=== PATIENT | female | born 1930 | race Caucasian/White ===

== ENCOUNTER 2016-05-24 15:03 | Inpatient (IN) | payer MEDICARE, BC ==
[~2016-05-24] VITALS: Ht 172.7 cm; Wt 110.4 kg
[~2016-05-24 15:03] MED LIST changes: -HUMALOG 75/2100 U/ML SQ; -ULTRAM 50MG TAB50 MG PO
[2016-05-24 15:46] LABS: C-REACTIVE PROTEIN 0.8 mg/dL (0.0-0.9)
[2016-05-24 15:55] LABS: B-TYPE NATRIURETIC PEPTIDE 280 pg/mL (0-450)
[2016-05-24 15:57] LABS: TROPONIN-I < 0.012 ng/mL (0.000-0.034)
[2016-05-24] MEDS ORDERED: LOTREL 10 MG-401 CAP PO (16:04)
[2016-05-24] MEDS ORDERED: CATAPRES0.2 MG PO (16:05)
[2016-05-24] MEDS ORDERED: HUMALOG 75/2100 U/ML SQ ×2 (16:07)
[2016-05-24] MEDS ORDERED: ULTRAM 50MG TAB50 MG PO (16:10)
[2016-05-24] MEDS ORDERED: APRESOLINE50 MG PO (16:11)
[2016-05-24] MEDS ORDERED: ALEVE 220MG220 MG PO (16:13)
[2016-05-24 16:14] LABS: PH 5 (5-8); SQUAMOUS EPITHELIAL None Seen /hpf; URINE APPEARANCE Clear; URINE BACTERIA None Seen /hpf; URINE BILIRUBIN Negative (NEGATIVE); URINE BLOOD Negative (NEGATIVE); URINE COLOR Amber; URINE GLUCOSE 3+ (NEGATIVE); URINE KETONE Negative (NEGATIVE); URINE RBC 0-2 /hpf; URINE UROBILINOGEN Negative (NEGATIVE); URINE WBC 0-2 /hpf
[2016-05-24 18:42] VITALS: BP 97/54; PULSE 85; TEMP 98.3
[2016-05-24 21:07] VITALS: BP 147/54; PULSE 82; TEMP 98.3
[2016-05-25 00:11] LABS: INFLUENZA B NEGATIVE
[2016-05-25 00:24] VITALS: BP 148/44; PULSE 87; TEMP 98.2
[2016-05-25 05:05] VITALS: BP 157/64; PULSE 83; TEMP 98.8
[2016-05-25 07:31] LABS: BASO # 0.1 (0.0-0.2); BASO % 0.4 % (0.0-2.0); EOS # 0.1 (0.0-0.7); EOS % 1.2 % (0-4.0); GRAN # 8.3 (1.4-6.5); GRAN % 70.6 % (42.2-75.2); HEMOGLOBIN 14.7 g/dl (12.5-16.0); LYMPH # 2.2 (1.2-3.4); LYMPH % 18.8 % (20.0-51.0); MEAN CELL VOLUME 87 fl (80.0-100.0); MEAN CORPUSCULAR HEMOGLOBIN 29 pg (27.0-31.0); MEAN CORPUSCULAR HGB CONC 33 g/dl (33.0-37.0); MONO % 8.7 % (1.7-9.3); RED BLOOD COUNT 5.05 M/mm3 (4.10-5.30); REDCELL DISTRIBUTION WIDTH-CV 13.1 % (11.5-14.5); WHITE BLOOD COUNT 11.8 K/mm3 (4.8-10.8)
[2016-05-25 07:33] LABS: PLATELET COUNT 222 K/mm3 (130-400)
[2016-05-25 07:35] LABS: CALCIUM 9.3 mg/dL (8.4-10.2); CREATININE, serum 1.13 mg/dL (0.52-1.25); POTASSIUM 3.9 mmol/L (3.4-5.0)
[2016-05-25 08:05] LABS: THYROID STIMULATING HORMONE 1.17 uIU/mL (0.465-4.680)
[2016-05-25 09:01] VITALS: BP 139/64; PULSE 64; TEMP 97.6
[2016-05-25 12:02] VITALS: BP 119/48; PULSE 77; TEMP 98.2
[2016-05-25 17:14] VITALS: BP 152/57; PULSE 76; TEMP 98.1
[2016-05-25 20:35] VITALS: BP 158/61; PULSE 92; TEMP 98.5
[2016-05-26 01:18] VITALS: BP 145/61; PULSE 88; TEMP 98.3
[2016-05-26 05:05] VITALS: BP 166/48; PULSE 76; TEMP 97.4
[2016-05-26 07:50] LABS: BASO % 0.5 % (0.0-2.0); EOS # 0.2 (0.0-0.7); EOS % 2.6 % (0-4.0); GRAN # 5.1 (1.4-6.5); GRAN % 59.4 % (42.2-75.2); HEMATOCRIT 40.5 % (37.0-47.0); HEMOGLOBIN 13.3 g/dl (12.5-16.0); LYMPH # 2.4 (1.2-3.4); LYMPH % 28.1 % (20.0-51.0); MEAN CELL VOLUME 89 fl (80.0-100.0); MEAN CORPUSCULAR HEMOGLOBIN 29 pg (27.0-31.0); MEAN CORPUSCULAR HGB CONC 33 g/dl (33.0-37.0); MEAN PLATELET VOLUME 11.5 fl (7.4-10.4); MONO # 0.8 (0.1-0.6); PLATELET COUNT 228 K/mm3 (130-400); RED BLOOD COUNT 4.55 M/mm3 (4.10-5.30); REDCELL DISTRIBUTION WIDTH-CV 13.3 % (11.5-14.5); WHITE BLOOD COUNT 8.5 K/mm3 (4.8-10.8)
[2016-05-26 08:50] VITALS: BP 144/86; PULSE 74; TEMP 97.8
[2016-05-26] MEDS ORDERED: ULTRAM 50MG TAB50 MG PO (11:11)
== END 2016-05-26 12:15 | disposition home or self-care (01) | DRG 552 ==
LOC: COL.ER 15:03 → MEDICAL 17:12
PROVIDERS: Emergency Medicine; Internal Medicine; Physician Assistant
DX: M51.36 Other intervertebral disc degeneration, lumbar region (principal); E87.1 Hypo-osmolality and hyponatremia; N17.9 Acute kidney failure, unspecified; E11.9 Type 2 diabetes mellitus without complications; I10 Essential (primary) hypertension; E83.52 Hypercalcemia; E86.0 Dehydration; E11.65 Type 2 diabetes mellitus with hyperglycemia; J84.10 Pulmonary fibrosis, unspecified
CPT/HCPCS: 99223-AI; 99232-AI; 99239; J0456; J0696; J1644; J1815; J2405; J7030; J7050

== ENCOUNTER → 2016-05-24 | Outpatient (CLI) | payer MEDICARE, BC ==
[~2016-05-24] MED LIST: ALDACTONE50 MG PO; ALEVE 220MG220 MG PO; APRESOLINE 25MG25 MG PO; APRESOLINE50 MG PO; ASPI325T6 PO; ASPIRIN 81M81 MG/TA2 PO; ASPIRIN E.C. 8181 MG PO; CATAPRES 0.1MG0.1 MG PO; CATAPRES0.2 MG PO; CELEXA10 MG PO; CETIRIZINE; CLEOCIN HCL300 MG PO; COMPLETE SENIOR1 TA1 PO; CORDARONE200 MG/TAB PO; FISH OIL500 MG PO; FLOVENT DI50 MCG/Act IH; FUROSEMIDE; HUMALOG 75/2100 U/ML SQ; HUMALOG PEN100 U/ML SQ; HUMALOG100 U/ML SC; JANUVIA50 MG PO; LANTUS SOLOS100 U/ML SQ; LANTUS100 U/ML SQ; LASIX 20MG TABL20 MG PO; LASIX 40MG TABL40 MG PO; LEVAQUIN 5500 MG/TA1 PO; LOPRESSOR 550 MG/TAB PO; LOTENSIN 1010 MG/TAB PO; LOTENSIN40 MG PO; LOTREL 10 MG-401 CAP PO; LOTREL 5 MG-201 CAP PO; LOTREL 5/20 CAP1 CAP PO; MASON NATURAL1200 MG PO; MINIPRESS 5M5 MG/CAP PO; MULTI VITAMINS1 TAB PO; NORVASC 10MG10 MG PO; PLAVIX 75MG TAB75 MG PO; PRAVACHOL 20MG20 MG PO; PRAZOSIN; RT Duoneb Neb Soln IH; SIMVASTATIN5 MG PO; TYLENOL 500MG500 MG PO; ULTRAM 50MG TAB50 MG PO; ZOCOR5 MG PO; ZYRTEC 10MG10 MG PO; ZYRTEC ALLERGY10 MG PO; [UNRECOGNIZED DRUG - REMARK]
[2016-05-24 13:32] LABS: BASO # 0.1 (0.0-0.2); BASO % 0.5 % (0.0-2.0); EOS # 0.2 (0.0-0.7); EOS % 1.6 % (0-4.0); GRAN # 7.7 (1.4-6.5); GRAN % 60.4 % (42.2-75.2); HEMATOCRIT 47.7 % (37.0-47.0); HEMOGLOBIN 16.4 g/dl (12.5-16.0); LYMPH # 3.8 (1.2-3.4); LYMPH % 29.9 % (20.0-51.0); MEAN CELL VOLUME 86 fl (80.0-100.0); MEAN CORPUSCULAR HEMOGLOBIN 30 pg (27.0-31.0); MEAN CORPUSCULAR HGB CONC 34 g/dl (33.0-37.0); MEAN PLATELET VOLUME 11.4 fl (7.4-10.4); MONO # 0.9 (0.1-0.6); MONO % 7.3 % (1.7-9.3); PLATELET COUNT 329 K/mm3 (130-400); RED BLOOD COUNT 5.52 M/mm3 (4.10-5.30); REDCELL DISTRIBUTION WIDTH-CV 12.7 % (11.5-14.5); WHITE BLOOD COUNT 12.8 K/mm3 (4.8-10.8)
[2016-05-24 13:44] LABS: ADJUSTED CALCIUM 11.1 mg/dL (8.4-10.2); ALBUMIN 4.3 gm/dL (3.5-5.0); BILIRUBIN,TOTAL 0.8 mg/dL (0.0-1.0); CALCIUM 11.3 mg/dL (8.4-10.2); CREATININE, serum 1.48 mg/dL (0.52-1.25); POTASSIUM 4.6 mmol/L (3.4-5.0); TOTAL PROTEIN 7.1 gm/dL (6.4-8.2)
== END ==
LOC: ZCOL.LAB 13:26
PROVIDERS: Nurse Practitioner Primary Care
DX: R53.1 Weakness (principal)

== ENCOUNTER → 2016-06-08 | Outpatient (CLI) | payer MEDICARE, BC ==
[~2016-06-08] MED LIST changes: +HUMALOG 75/2100 U/ML SQ; +ULTRAM 50MG TAB50 MG PO
[2016-06-08 17:51] LABS: CALCIUM 10.1 mg/dL (8.4-10.2); CREATININE, serum 1.38 mg/dL (0.52-1.25); POTASSIUM 4.4 mmol/L (3.4-5.0)
== END ==
LOC: ZCOL.LAB 17:22
PROVIDERS: Nurse Practitioner Primary Care
DX: E87.1 Hypo-osmolality and hyponatremia (principal)

== ENCOUNTER → 2016-08-29 | Outpatient (CLI) | payer MEDICARE, BC | LOC: COL.RAD 16:48 | DX: G31.9 Degenerative disease of nervous system, unspecified (principal); I67.82 Cerebral ischemia; I63.9 Cerebral infarction, unspecified ==

== ENCOUNTER → 2016-10-30 | Outpatient (CLI) | payer MEDICARE, BC ==
[2016-10-30 11:42] LABS: BASO # 0.1 (0.0-0.2); BASO % 0.5 % (0.0-2.0); EOS # 0.2 (0.0-0.7); EOS % 1.4 % (0-4.0); GRAN # 12.2 (1.4-6.5); GRAN % 75.2 % (42.2-75.2); HEMOGLOBIN 14.2 g/dl (12.5-16.0); LYMPH # 2.5 (1.2-3.4); LYMPH % 15.2 % (20.0-51.0); MEAN CELL VOLUME 89 fl (80.0-100.0); MEAN CORPUSCULAR HEMOGLOBIN 29 pg (27.0-31.0); MEAN CORPUSCULAR HGB CONC 32 g/dl (33.0-37.0); MONO # 1.2 (0.1-0.6); MONO % 7.3 % (1.7-9.3); PLATELET COUNT 356 K/mm3 (130-400); RED BLOOD COUNT 4.92 M/mm3 (4.10-5.30); REDCELL DISTRIBUTION WIDTH-CV 14.1 % (11.5-14.5); WHITE BLOOD COUNT 16.2 K/mm3 (4.8-10.8)
[2016-10-30 11:54] LABS: ADJUSTED CALCIUM 9.7 mg/dL (8.4-10.2); ALBUMIN 4.4 gm/dL (3.5-5.0); CREATININE, serum 1.51 mg/dL (0.52-1.25); POTASSIUM 5.2 mmol/L (3.4-5.0); TOTAL PROTEIN 7.4 gm/dL (6.4-8.2)
== END ==
LOC: ZCOL.LAB 11:23
PROVIDERS: Internal Medicine
DX: J18.9 Pneumonia, unspecified organism (principal); E11.9 Type 2 diabetes mellitus without complications; R63.5 Abnormal weight gain

== ENCOUNTER → 2017-07-26 | Outpatient (CLI) | payer MEDICARE, BC ==
[~2017-07-26] MED LIST changes: +ALDACTONE 25MG25 M1 PO; +HUMALOG MIX 75/10 ML SQ; +NASAL MOISTURIZ45 ML NS; +ZYRTEC10MGSGL
[2017-07-26 17:01] LABS: COLLECTION METHOD CLEAN CATCH
[2017-07-26 17:06] LABS: BASO % 0.5 % (0.0-2.0); EOS # 0.2 (0.0-0.7); EOS % 2.7 % (0-4.0); GRAN # 3.6 (1.4-6.5); GRAN % 56.4 % (42.2-75.2); HEMATOCRIT 39.1 % (37.0-47.0); HEMOGLOBIN 12.1 g/dl (12.5-16.0); LYMPH # 1.5 (1.2-3.4); LYMPH % 24.4 % (20.0-51.0); MEAN CELL VOLUME 89 fl (80.0-100.0); MEAN CORPUSCULAR HEMOGLOBIN 27 pg (27.0-31.0); MEAN CORPUSCULAR HGB CONC 31 g/dl (33.0-37.0); MONO % 15.8 % (1.7-9.3); PLATELET COUNT 326 K/mm3 (130-400); RED BLOOD COUNT 4.41 M/mm3 (4.10-5.30)
[2017-07-26 17:10] LABS: CALCIUM 9.2 mg/dL (8.4-10.2); CREATININE, serum 0.83 mg/dL (0.52-1.25); POTASSIUM 3.1 mmol/L (3.4-5.0)
[2017-07-26 17:17] LABS: MUCOUS Present /lpf; PH 5 (5-8); SQUAMOUS EPITHELIAL 0-2 /hpf; URINE APPEARANCE Clear; URINE BACTERIA None Seen /hpf; URINE BILIRUBIN Negative (NEGATIVE); URINE BLOOD Negative (NEGATIVE); URINE COLOR Yellow; URINE GLUCOSE Negative (NEGATIVE); URINE KETONE Trace (NEGATIVE); URINE LEUKOCYTE ESTERASE Negative (NEGATIVE); URINE NITRATE Negative (NEGATIVE); URINE PROTEIN(semi-quant) Negative (NEGATIVE); URINE RBC 0-2 /hpf; URINE UROBILINOGEN Negative (NEGATIVE); URINE WBC 0-2 /hpf
== END ==
LOC: ZCOL.LAB 15:53
PROVIDERS: Nurse Practitioner Family
DX: Z01.89 Encounter for other specified special examinations (principal)